=== PATIENT | female | born 1955 | race American Indian/Alaskan Native ===

== ENCOUNTER 2018-10-22 08:49 | Day surgery (SDC) | payer OTHER ==
[2018-10-22 10:12] LABS: Blood Urea Nitrogen 15 mg/dL (7-17)
--- NOTE | 2018-10-22 11:26 | Cat Scan Report ---
CT NECK WITH CONTRAST: HISTORY: Localized swelling mass or lump. TECHNIQUE: Helical CT following IV contrast. Sagittal and coronal reformatted images. FINDINGS: A marker is placed on the left side of the neck at a palpable mass. CT neck with contrast demonstrates a mildly enlarged and engorged left submandibular gland in this area. There is a large stone in the proximal left submandibular duct/gland measuring 2.3 x 1.1 x 1.2 cm. The remaining salivary glands are unremarkable. Parapharyngeal soft tissues are within normal limits. The vascular structures are patent. The visualized brain and skull base are intact. Mild ethmoid sinusitis is noted. Normal thyroid gland. The lung apices are clear. There are a few scattered benign-appearing cervical lymph nodes bilaterally. No adenopathy or suspicious mass. IMPRESSION: No suspicious mass or adenopathy. CT-guided biopsy was canceled. Large left submandibular duct/gland stone as outlined above. Swollen left submandibular gland.
== END 2018-10-22 08:50 | disposition home or self-care (01) ==
LOC: CT 08:49
PROVIDERS: ATTEND Otolaryngology
DX: K11.5 Sialolithiasis (principal); K11.8 Other diseases of salivary glands; I10 Essential (primary) hypertension; E03.9 Hypothyroidism, unspecified; Z79.899 Other long term (current) drug therapy; Z90.710 Acquired absence of both cervix and uterus; Z98.890 Other specified postprocedural states
CPT/HCPCS: 36415; 70491; 82565; 84520; Q9967

== ENCOUNTER 2021-03-15 11:10 | Outpatient (CLI) | payer OTHER ==
--- NOTE | 2021-03-15 13:57 | Magnetic Resonance Report ---
Bilateral breast MR without and with contrast. 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 Patient reports recent left bloody nipple discharge. Comparison: None available. Technique: Multiplanar multisequence MR images of the breast were obtained before and after the intra venous administration of 15 mL of Clariscan contrast agent. Post processing analysis and review was p erformed on a separate computer workstation. Findings: There is minimal background parenchymal enhancement within both breasts. LEFT BREAST: Located in the left subareolar breast is a 6 x 4 x 5 mm oval-shaped area of enhancement. This is just deep to the nipple. Additionally, in the left breast at the 11:00 to 12:00 position at middle depth, 4.3 cm from the nipple, is a 2.9 x 1 x 1.1 cm area of mass and non-masslike enhancement . This is best seen on series 6, image 569. Suspected intramammary lymph node within the inferior pos terior left breast is incidentally noted. RIGHT BREAST: Located within the right breast at the 6:00 position, 6 cm from the nipple, and 10:00 p osition, 5 cm from the nipple, are circumscribed oval, possibly reniform, shaped lesions which appear most consistent with intramammary lymph nodes. Enlarged rounded left axillary lymph node. No abnormal lymph nodes within the right axilla. No abnorm al internal mammary lymph nodes. Impression: 1. Located very superficially within the left subareolar breast is a 6 mm oval enhancing lesion. A ta rgeted ultrasound is recommended for further evaluation. If a sonographic correlate is identified, ul trasound-guided biopsy would be recommended if it appears amenable to ultrasound guided biopsy. 2. Located within the left breast at the 11:00 to 12:00 position (4.3 cm from the nipple) is a 2.9 cm area of mass and non-masslike enhancement. A targeted ultrasound is recommended for further evaluati on with subsequent ultrasound guided core biopsy if a sonographic correlate is identified. If no sono graphic correlate is identified, an MRI guided biopsy would be recommended. 3. Abnormal rounded enlarged left axillary lymph node for which a targeted ultrasound is recommended. 4. Located within the right breast at the 6:00 position, 6 cm from the nipple, and 10:00 position, 5 cm from the nipple, are circumscribed oval, possibly reniform, shaped lesions. These appear most cons istent with intramammary lymph nodes and a targeted ultrasound is recommended for confirmation. Ultra sound guided biopsy may be indicated at that time if they cannot be confirmed lymph nodes. If no sono graphic correlate is identified MRI guided biopsy of the 10:00 lesion would be recommended as this ap pears slightly less reniform in shape. BIRADS 0: Incomplete--Needs Additional Imaging Evaluation. A normal MRI does not exclude the presence of some forms of breast malignancy as literature reports s uggest that some forms of ductal carcinoma in situ or lobular carcinoma, particularly, may not be det ected on MRI. The sensitivity and specificity of MRI for cancers under 5 mm may be reduced. MRI does not replace the recommendation for annual conventional mammographic evaluation and should be used as an adjunct to mammography and physical examination as necessary. Signer Name: Johnny Ross MD Signed: 03/15/2021 1:52 PM Workstation Name: [id number]
== END 2021-03-15 11:11 | disposition home or self-care (01) ==
LOC: SPVIMAG 11:10
PROVIDERS: ATTEND Surgery
DX: N63.22 Unspecified lump in the left breast, upper inner quadrant (principal); R92.8 Other abnormal and inconclusive findings on diagnostic imaging of breast; N64.52 Nipple discharge
CPT/HCPCS: A9575; C8908; 77049

== ENCOUNTER 2021-03-30 08:08 | Outpatient (CLI) | payer OTHER ==
--- NOTE | 2021-03-30 17:53 | Mammography Report ---
BILATERAL DIGITAL DIAGNOSTIC MAMMOGRAM WITH CAD CONVENTIONAL, 03/30/2021 BILATERAL COMPLETE BREAST ULTRASOUND CLINICAL INFORMATION / INDICATION: The patient has recently undergone percutaneous biopsy of the left breast which demonstrated atypical sclerosing papillary lesion with ADH. She also underwent breast M RI which demonstrated findings in each breast. She presents for additional evaluation with second loo k ultrasound and mammogram. TECHNIQUE: Digital bilateral mammographic imaging was performed. Complete ultrasound of all four (4) quadrants was performed. This examination was interpreted with the benefit of Computer-Aided Detectio n (CAD) analysis. COMPARISON: Breast MRI, 03/15/2021. Bilateral screening mammogram, 01/30/2021 FINDINGS: Breast Density: The breasts are heterogeneously dense, which may obscure small masses. MAMMOGRAPHIC FINDINGS: Right breast: No dominant mass, suspicious ossification architectural distortion is identified in the right breast. Left breast: New biopsy clip is seen within the central aspect of the left breast posterior depth. ULTRASOUND FINDINGS: Complete sonographic evaluation of all 4 quadrants and retroareolar region was p erformed. Right breast: Sonographic evaluation of the right breast at the 6:00 position demonstrates a circumsc ribed 5 mm hypoechoic nodule 2 cm from the nipple. There is a similar appearing circumscribed hypoech oic nodule at the 10:00 position 7 cm from the nipple. No suspicious solid mass or shadowing is visua lized in the right breast. Left breast: Sonographic evaluation of the left breast demonstrates no evidence of suspicious solid m ass or shadowing. Left axillary lymph nodes demonstrate a normal morphology with a preserved fatty hi lum. IMPRESSION: 1. There is no mammographic or sonographic correlate for the masslike area of enhancement in the left breast at the 11:00 position. This area is located approximately 2 cm anterior to the biopsy proven papilloma. Based on its appearance, it may represent a second area of papilloma, particularly given t he patient's history of left bloody nipple discharge. MRI guided biopsy is suggested if it would alte r surgical management. 2. No mammographic or sonographic correlate for the subtle possible 5 mm lesion in the immediate retr oareolar left breast. Percutaneous biopsy of this finding would likely not be possible due to its imm ediate retroareolar location. This may also represent a tiny papilloma. 3. Right breast intramammary lymph nodes as demonstrated on recent breast MRI and today's ultrasound. These represent a benign finding. Recommendation: Biopsy BI-RADS Category 4: Suspicious for Malignancy. A "normal" or negative report should not discourage follow up or biopsy of a clinically significant f inding. A written summary of these findings will be mailed to the patient. The patient will be entered into a mammography reporting system which will generate a reminder letter for the patient's next appointmen t at the appropriate interval. According to the [employer], yearly mammograms are recommended starting at age 40 and continuing as long as a woman is in good health. Breast MRI is recommended for women with an emile roximately 20-25% or greater lifetime risk of breast cancer, including women with a strong family his tory of breast or ovarian cancer and women who have been treated for Hodgkin's disease. Signer Name: Marina Lopez MD Signed: 03/30/2021 5:49 PM Workstation Name: [id number]
== END 2021-03-30 08:09 | disposition home or self-care (01) ==
LOC: SPVWC 08:08
PROVIDERS: ATTEND Surgery
DX: N63.14 Unspecified lump in the right breast, lower inner quadrant (principal); N63.11 Unspecified lump in the right breast, upper outer quadrant; N64.52 Nipple discharge; R92.8 Other abnormal and inconclusive findings on diagnostic imaging of breast
CPT/HCPCS: 77066

== ENCOUNTER 2021-04-12 13:56 | Outpatient (CLI) | payer OTHER ==
--- NOTE | 2021-04-14 09:19 | Magnetic Resonance Report ---
MRI guided left breast biopsy, 04/12/2021 CLINICAL INFORMATION/INDICATION: The patient has a history of recent biopsy proven papilloma in the l eft breast. She recently underwent breast MRI which demonstrated a second area of enhancement at the 11:00 position in the left breast. There is no mammographic or sonographic correlate. Therefore, MRI guided biopsy is indicated. COMPARISON: Breast MRI, 03/15/2021. Diagnostic mammogram and ultrasound, 03/30/2021 PROCEDURE: Risks, benefits and indications to the procedure were discussed with the patient in detail, including bleeding, infection, hematoma formation and inadequate tissue sampling. The patient agreed to procee d with both verbal and written consent. A timeout procedure was performed with two patient identifier s. The patient was placed in the prone position in the MRI suite and localizer imaging was obtained usin g an 8 channel breast coil. Sagittal pre and post gadolinium fat-saturated sequences were obtained. The targeted area of interest was then identified and coordinates were determined. The breast was nathan ansed and prepped in the usual sterile fashion. Lidocaine 1% with and without epinephrine was used fo r local anesthesia. A 9 gauge introducer sheath and stylette was then advanced to the appropriate pos ition from the lateral approach. The stylette was replaced with an obturator. Subsequent sagittal se quences were obtained to confirm satisfactory positioning of the sheath. Multiple vacuum-assisted 9 g auge core samples were obtained in a round the clock fashion at the 11:00 position with an [employer] biops y device. Post-biopsy images confirm satisfactory tissue sampling at the targeted location. A biopsy clip was then deployed at the biopsy site and sheath was removed. Hemostasis achieved with manual pr essure. A sterile pressure dressing was applied to the skin. The patient tolerated the procedure without difficulty. No complications were encountered. Post-biops y instructions were discussed with the patient and given in writing. IMPRESSION: 1. Technically successful MRI guided left breast biopsy. Biopsy results are pending and will be repor malcolm in an addendum. Signer Name: Marina Lopez MD Signed: 04/14/2021 9:15 AM Workstation Name: [id number]
--- NOTE | 2021-04-14 09:21 | Mammography Report ---
DIGITAL DIAGNOSTIC MAMMOGRAM WITH CAD, 04/12/2021 INDICATION: The patient underwent MRI guided left breast biopsy. Postbiopsy mammogram is obtained to document clip placement. TECHNIQUE: Digital left mammographic imaging was performed. This examination was interpreted with the benefit of Computer-aided Detection analysis. COMPARISON: MRI guided left breast biopsy, 04/12/2021. Diagnostic mammogram and ultrasound, 03/30/2021. Breast MRI, 03/15/2021 FINDINGS: Breast Density: The breasts are heterogeneously dense, which may obscure small masses. Postbiopsy mammogram confirms satisfactory positioning of the biopsy clip at the 11:00 position anter ior depth. IMPRESSION: Follow up recommendation: No recall. Post biopsy imaging. A "normal" or negative report should not discourage follow up or biopsy of a clinically significant f inding. A written summary of these findings will be mailed to the patient. The patient will be entered into a mammography reporting system which will generate a reminder letter for the patient's next appointmen t at the appropriate interval. According to the [employer], yearly mammograms are recommended starting at age 40 and continuing as long as a woman is in good health. Breast MRI is recommended for women with an emile roximately 20-25% or greater lifetime risk of breast cancer, including women with a strong family his tory of breast or ovarian cancer and women who have been treated for Hodgkin's disease. Signer Name: Marina Lopez MD Signed: 04/14/2021 9:17 AM Workstation Name: [id number]
== END 2021-04-12 13:57 | disposition home or self-care (01) ==
LOC: SPVIMAG 13:56
PROVIDERS: ATTEND Surgery
DX: N63.22 Unspecified lump in the left breast, upper inner quadrant (principal); R92.8 Other abnormal and inconclusive findings on diagnostic imaging of breast; R92.0 Mammographic microcalcification found on diagnostic imaging of breast; I10 Essential (primary) hypertension; E03.9 Hypothyroidism, unspecified; N64.89 Other specified disorders of breast; Z91.040 Latex allergy status; Z88.0 Allergy status to penicillin; Z79.899 Other long term (current) drug therapy; Z90.710 Acquired absence of both cervix and uterus; Z98.890 Other specified postprocedural states
CPT/HCPCS: 19085; 77065; 88305; A4648; A9575

== ENCOUNTER 2021-05-11 07:02 | Day surgery (SDC) | payer OTHER ==
[2021-05-03 10:40] LABS: Hematocrit 38.4 % (30.3-42.9); Hemoglobin 12.9 gm/dl (10.1-14.3); Mean Corpuscular HGB Conc 34 % (30-34); Mean Corpuscular Volume 89 fl (79-97); Platelet Count 332 K/mm3 (140-440); Red Blood Count 4.32 M/mm3 (3.65-5.03); Red Cell Distribution Width 14.8 % (13.2-15.2)
[~2021-05-11 07:02] MED LIST: ACETAMINOPHEN 500 MG TAB PO SCH; GABAPENTIN 300 MG CAP PO NR; LACTATED RINGERS 1,000 ML IV SCH; MIDAZOLAM 2 MG/2 ML INJ IV NR; VANCOMYCIN/NS 1 GM/250 ML 1 GM/250 ML BAG IV NR
[2021-05-11] MEDS ORDERED: LIDOCAINE (1%) 10 MG/1 ML VIAL 20 ML MDV ONE ×2 (07:51→09:45)
[2021-05-11] MEDS ORDERED: KETOROLAC 30 MG/1 ML INJ ONE (08:56)
[2021-05-11] MEDS ORDERED: ONDANSETRON 4 MG/2 ML INJ ONE (08:56)
[2021-05-11] MEDS ORDERED: LIDOCAINE MPF (2%) 20 MG/1 ML VIAL 5 ML ONE (08:56)
[2021-05-11] MEDS ORDERED: propofoL 200 MG/20 ML VIAL IV ONE (08:57)
[2021-05-11] MEDS ORDERED: fentaNYL 100 MCG/2 ML INJ ONE (08:57)
--- NOTE | 2021-05-11 09:24 | Mammography Report ---
MAMMOGRAPHIC GUIDED LEFT BREAST NEEDLE LOCALIZATION, 05/11/2021 CLINICAL INFORMATION / INDICATION: lt breast mass. COMPARISON: 03/13/2021 PROCEDURE: Risks, benefits and indications to the procedure were discussed with the patient. The patient agreed to proceed with both verbal and written consent. A timeout procedure was performed with 2 patient abdelrahman ntifiers. The breast was prepped with betadine in the usual sterile fashion. Approximately 5 cc of Lidocaine 1% was used for local anesthesia. Under direct digital mammographic guidance, a localization wire was p laced in satisfactory position with distal tip traversing the targeted lesion. Post-biopsy mammogram confirms satisfactory positioning of the localization wire. The wire was secured to the skin with a s terile dressing. The patient tolerated procedure without difficulty. No complications were encountered. IMPRESSION: 1. Satisfactory mammographic guided wire localization of the left breast target lesion. Signer Name: Uday Rockwell Jr, MD Signed: 05/11/2021 9:20 AM Workstation Name: [id number]
--- NOTE | 2021-05-11 09:29 | Anesthesia Consultation ---
Anesthesia Consult and Med Hx Date of service: 05/11/21 - Airway Anesthetic Teeth Evaluation: Dentures ROM Head & Neck: Adequate Mental/Hyoid Distance: Adequate Mallampati Class: Class II Intubation Access Assessment: Probably Good - Pre-Operative Health Status ASA Pre-Surgery Classification: ASA2 Proposed Anesthetic Plan: General - Pulmonary Hx Smoking: No Hx Respiratory Symptoms: No - Cardiovascular System Hx Hypertension: Yes (took amlodipine this morning) Hx Heart Attack/AMI: No Hx Percutaneous Transluminal Coronary Angioplasty (PTCA): No - Central Nervous System CVA: No Hx Psychiatric Problems: Yes (anxiety/depression) - Endocrine Hx Renal Disease: No Hx Liver Disease: No Hx Non-Insulin Dependent Diabetes: Yes Hx Hypothyroidism: Yes (took synthroid this morning) - Other Systems Hx Obesity: No - Additional Comments Anesthesia Medical History Comments: No hx anesthetic complications.
[2021-05-11] MEDS ORDERED: HYDROcodone/ACETAMINOPHEN 5-325 MG TAB PO PRN (09:30)
[2021-05-11] MEDS ORDERED: HYDROmorphone 1 MG/1 ML INJ IV PRN (09:30)
[2021-05-11] MEDS ORDERED: ONDANSETRON 4 MG/2 ML INJ IV PRN (09:30)
--- NOTE | 2021-05-11 09:30 | Anesthesia Day of Surgery ---
Anesthesia Day of Surgery - Day of Surgery Patient Examined: Yes Patient H&P Reviewed: Yes Patient is NPO: Yes
[2021-05-11] MEDS ORDERED: SODIUM CHLORIDE P/F VIAL 10 ML 0 ML ONE (09:45)
[2021-05-11] MEDS ORDERED: BUPIVACAINE/PF (0.25%) 2.5 MG/ML 30 ML VIAL INFILTRATI ONE ×2 (09:45→10:47)
[2021-05-11] MEDS ORDERED: METHYLENE BLUE 50 MG/10 ML AMP ONE (09:46)
[2021-05-11] MEDS ORDERED: VANCOMYCIN 1000 MG INJ ONE (10:27)
[2021-05-11] MEDS ORDERED: WATER FOR IRRIG STERILE 1,500 ML BOTTLE IR ONE (10:47)
[2021-05-11] MEDS ORDERED: LIDOCAINE (1%) 10 MG/1 ML VIAL 20 ML MDV INFILTRATI ONE (10:48)
[2021-05-11] MEDS ORDERED: PHENYLEPHRINE/NS 1,000 MCG/10 ML SYRINGE (OR USE) IV ONE (10:53)
[2021-05-11] MEDS ORDERED: BACITRACIN ZINC OINT 28.4 GM TP ONE (11:50)
--- NOTE | 2021-05-11 12:17 | Short Stay Summary ---
Short Stay Documentation Date of service: 05/11/21 - History H&P: obtained from office - Allergies and Medications Current Medications: Allergies latex Allergy (Verified 04/29/21 10:37) Rash Penicillins Allergy (Verified 04/29/21 10:37) Swelling Home Medications Medication Instructions Recorded Confirmed Last Taken Type RX: Levothyroxine [Synthroid] 75 mcg PO DAILY 07/14/13 05/11/21 05/11/21 05:00 History Gabapentin [Neurontin] 300 mg PO TID 04/29/21 04/29/21 Unknown History Lovastatin [Altoprev] 20 mg PO DAILY 04/29/21 05/11/21 05/10/21 18:00 History Metformin HCl [metFORMIN] 1,000 mg PO BID 04/29/21 05/11/21 05/10/21 18:00 History Venlafaxine [Effexor] 75 mg PO DAILY 04/29/21 05/11/21 05/10/21 18:00 History amLODIPine 5 mg PO DAILY 04/29/21 05/11/21 05/11/21 05:00 History glyBURIDE [Diabeta] 10 mg PO DAILY 04/29/21 05/11/21 05/10/21 18:00 History Active Medications Acetaminophen (Acetaminophen 500 Mg Tab) 1,000 mg PO PREOP ESTEFANIA Stop: 05/11/21 20:00 Last Admin: 05/11/21 09:10 Dose: 1,000 mg Documented by: Gabapentin (Gabapentin 300 Mg Cap) 300 mg PO PREOP NR Stop: 05/11/21 20:00 Hydromorphone HCl (Hydromorphone 1 Mg/1 Ml Inj) 0.5 mg IV Q10MIN PRN PRN Reason: Pain , Severe (7-10) Stop: 05/11/21 23:00 Vancomycin HCl (Vancomycin/Ns 1 Gm/250 Ml) 1 gm in 250 mls @ 166.667 mls/hr IV PREOP NR; Protocol Stop: 05/11/21 23:59 Lactated Ringer's (Lactated Ringers) 1,000 mls @ 100 mls/hr IV DIRECT ESTEFANIA Stop: 05/11/21 23:59 Last Admin: 05/11/21 09:10 Dose: 100 mls/hr Documented by: Midazolam HCl (Midazolam 2 Mg/2 Ml Inj) 2 mg IV PREOP NR Stop: 05/11/21 20:00 Last Admin: 05/11/21 09:30 Dose: 2 mg Documented by: - Brief post op/procedure progress note Date of procedure: 05/11/21 Pre-op diagnosis: Left breast ADH of central quadrant Post-op diagnosis: same Procedure: Left breast needle localization excisional biopsy Anesthesia: GETA Findings: Wire and clip present within radiograph specimen Surgeon: HENRIQUE ENRIQUEZ Estimated blood loss: minimal Pathology: list Specimen disposition: to lab Condition: stable - Disposition Condition at discharge: Good Disposition: DC-01 TO HOME OR SELFCARE Short Stay Discharge Plan Activity: other (no heavy lifting) Diet: regular Wound: keep clean and dry (may shower in 48 hours; no baths, pools or lakes) Follow up with: HENRIQUE ENRIQUEZ MD [Staff Physician] - 7 Days
--- NOTE | 2021-05-11 12:22 | Operative Report ---
Operative Report Operative Report: Operative Report: May 11, 2021 Preoperative diagnosis: Left breast mass-atypical papillary lesion with ADH of the central posterior quadrant Postoperative diagnosis: Same Procedure: Left needle localization breast mass excisional biopsy of the central posterior quadrant Surgeon: Yolanda Sy MD Procurement Inspector: Tammi Castellon MD Anesthesia: General Findings: Left wire and clip present within radiograph specimen Complications: None EBL: Minimal (less than 25 cc) Disposition: PACU in good condition Indications for operative procedure: This is a 65 year old lady with recent abnormal screening and diagnostic mamam[place] with biopsy performed of lesion of the central posterior breast with findings of atypical papillary lesion and ADH. Recommendations are to proceed with left breast excisional biopsy to rule out malignancy. She wished to proceed with the above procedure. Procedure in detail: The patient was taken to radiology for wire placement for localization known area of concern. Patient was then taken to the operating room. Gen. anesthesia was administered. Left breast and axilla were prepped and draped in the normal sterile operative fashion. The wire was identified. Ultrasound was used as well for identification of the tip of the wire. Timeout was performed. Attention was then taken towards the left breast. A periareoalr breast incision was made around the10/11:00 position with a 15 blade knife and dissection taken down to subcutaneous tissues. First began raising of the superior flap with removal of the wire from the skin with dissection taken down posteriorly past the wire, followed by raising of the inferior flap, medial flap and lateral flap with all flaps taken down posteriorly past the wire. The breast area of concern was appropriately removed posteriorly with the aid of the Bovie cautery. The wire was not encountered. Specimen was marked and then sent to pathology and radiology; radiograph specimen with wire and clip present. Breast cavity was irrigated and hemostasis was obtained. The posterior deep breast tissues were approximated and closed using interrupted 3-0 Vicryl. The subcutaneous tissues were approximated and closed using interrupted 3-0 Vicryl followed by closing of the skin with a running 4-0 Monocryl and dermabond. The patient tolerated surgery very well and she was awaken from anesthesia without any complication and transported to PACU in good condition.
[2021-05-11] MEDS ORDERED: INSULIN REGULAR, HUMAN 100 UNITS/1 ML ONE (12:35)
--- NOTE | 2021-05-11 12:44 | Mammography Report ---
LEFT BREAST SPECIMEN RADIOGRAPH, 05/11/2021 INDICATION: Left breast mass COMPARISON: Needle localization films performed earlier today. FINDINGS: The previously localized target lesion is present in its entirety in the submitted specimen. The localization wire is present. IMPRESSION: 1. Radiographic evidence of satisfactory excision of the left breast target lesion.. Signer Name: Uday Rockwell Jr, MD Signed: 05/11/2021 12:40 PM Workstation Name: [id number]
--- NOTE | 2021-05-11 13:21 | Post Anesthesia Evaluation ---
- Post Anesthesia Evaluation Patient Participated: Yes Airway Patent: Yes Stable Respiratory Function: Yes Nausea/Vomiting: No Temp > 96.8F: Yes Pain Manageable: Yes Adequeate Hydration: Yes Anesthesia Complications: No
[2021-05-11] MEDS ORDERED: INSULIN REGULAR, HUMAN 100 UNITS/1 ML IV PRN (13:35)
[2021-05-11 14:50] VITALS: BP 149/98
== END 2021-05-11 14:05 | disposition home or self-care (01) ==
LOC: OR 07:02
PROVIDERS: ATTEND Surgery
DX: N60.82 Other benign mammary dysplasias of left breast (principal); R92.8 Other abnormal and inconclusive findings on diagnostic imaging of breast; N64.52 Nipple discharge; I10 Essential (primary) hypertension; E03.9 Hypothyroidism, unspecified; F41.9 Anxiety disorder, unspecified; F32.9 Major depressive disorder, single episode, unspecified; M19.90 Unspecified osteoarthritis, unspecified site; Z88.0 Allergy status to penicillin; Z91.040 Latex allergy status; Z79.899 Other long term (current) drug therapy; Z79.84 Long term (current) use of oral hypoglycemic drugs; Z90.710 Acquired absence of both cervix and uterus; Z98.890 Other specified postprocedural states; Z72.89 Other problems related to lifestyle; Z20.822 Contact with and (suspected) exposure to COVID-19
CPT/HCPCS: 19125; 19281; 36415; 76098; 82962; 85027; 88307; 88341; 88342; A4648; J1885; J2250; J2370; J2405; J2704; J3010; J3370; J7120; U0003; J1815; Q9968